=== PATIENT | male | born 1990 | race African-American/Black ===

== ENCOUNTER 2020-06-12 02:33 | Emergency (ER) | payer MEDICAID ==
[~2020-06-12] VITALS: Ht 177.8 cm; Wt 69.0 kg
[2020-06-12] MEDS ORDERED: ONDANSETRON 4MG ODT PO ONE (02:45)
[2020-06-12] MEDS ORDERED: MORPHINE SULFATE 10 MG/ML CPJ IM ONE (02:45)
[2020-06-12] MEDS ORDERED: FENTANYL CITRATE/PF 50MCG/ML 2ML VIAL IV ONE (04:00)
[2020-06-12] MEDS ORDERED: IBUP-2029 MT (04:55)
[2020-06-12] MEDS ORDERED: HYDR-4346 MT (04:55)
[2020-06-12 06:00] VITALS: BP 102/74
== END 2020-06-12 06:02 | disposition home or self-care (01) ==
LOC: ER 02:33
DX: S63.064A Dislocation of metacarpal (bone), proximal end of right hand, initial encounter (principal); W22.8XXA Striking against or struck by other objects, initial encounter; Y93.89 Activity, other specified; Y92.9 Unspecified place or not applicable
CPT/HCPCS: 73110; 73130; 96372; 96374; 99284; J2270; J3010; Q0162